=== PATIENT | male | born 1965 | race Caucasian/White ===

== ENCOUNTER 2017-03-24 08:15 | Emergency (ER) | payer SELFPAY ==
[~2017-03-24] VITALS: Ht 182.9 cm; Wt 102.5 kg
[2017-03-24 08:21] VITALS: BP 122/74; PULSE 73; RESP 18; TEMP 97.9; O2SAT 96
[2017-03-24] MEDS ORDERED: CEPH-460 PO ×2 (08:36→08:39)
[2017-03-24] MEDS ORDERED: BACT800T5 PO ×2 (08:36→08:39)
--- NOTE | 2017-03-24 08:37 | PD ---
HPI Chief Complaint: Bite or Sting Time Seen by Provider: 08:25 Travel History International Travel<30 days: No Contact w/Intl Traveler<30days: No Traveled to known affect area: No History of Present Illness HPI 51-year-old male here with complaint of right thigh pain, swelling. Patient woke up approximately 2-3 days ago from sleep. He noted a mild erythematous papule on the right thigh that was itchy. He excoriated and unroofed the scab. Patient states it is becoming progressively more swollen since. Yesterday was draining yellowish pinkish fluid in today now draining somewhat purulent fluid. Patient denies any fevers, chills. No streaking erythema. PFSH Past Medical History Diminished Hearing: No Thyroid Disease: Yes Tetanus Vaccination: Unknown Social History Alcohol Use: Yes Tobacco Use: Yes Allergies-Medications (Allergen,Severity, Reaction): Coded Allergies: No Known Allergies (Unverified , 03/24/17) Reported Meds & Prescriptions Reported Meds & Active Scripts Active Keflex (Cephalexin) 500 Mg Capsule 500 Mg PO TID 7 Days Bactrim DS (Sulfamethoxazole-Trimethoprim) 800-160 Mg Tab 1 Tab PO BID Review of Systems Except as stated in HPI: all other systems reviewed are Neg Physical Exam Narrative GENERAL: Well-appearing male smelling heavily of tobacco no acute distress SKIN: Focused skin assessment warm/dry. HEAD: Normocephalic. EYES: No scleral icterus. No injection or drainage. ENT: Mucous membranes pink and moist. CARDIOVASCULAR: Regular rate and rhythm. RESPIRATORY: No accessory muscle use. GASTROINTESTINAL: Obese MUSCULOSKELETAL: Right thigh with 1.5 x 1.5 cm ulcer draining purulent fluid with surrounding induration and erythema. Margins were demarcated with a marking pen. Strength and gait intact NEUROLOGICAL: Awake and alert. Normal speech. PSYCHIATRIC: Appropriate mood and affect; insight and judgment normal. Data Data Last Documented VS Vital Signs Date Time Temp Pulse Resp B/P Pulse Ox O2 Delivery O2 Flow Rate FiO2 03/24/17 08:21 97.9 73 18 122/74 96 MDM Medical Decision Making Medical Screen Exam Complete: Yes Emergency Medical Condition: Yes Medical Record Reviewed: Yes Differential Diagnosis 51-year-old male here with complaint of possible bug bite to the right leg. Exam is consistent with cellulitis with central ulcer/drain abscess. There is no evidence of persistent fluctuance. Narrative Course Wound culture sent. Patient was started on Bactrim, Keflex for home Diagnosis Primary Impression: Cellulitis and abscess of right leg Referrals: [facility] call for appointment Patient Instructions: General Instructions Departure Forms: Tests/Procedures Additional Instructions: Antibiotics as prescribed. Return to the emergency department for the warning signs discussed. Tylenol, ibuprofen, Aleve as needed for pain. You may also ice the area for pain, swelling. Med/Other Pt SpecificInfo: Prescription(s) given Scripts Cephalexin (Keflex)500 Mg [id number] Mg PO TID 7 Days Ref 0 Prov:Stefania Potts MD 03/24/17 Sulfamethoxazole-Trimethoprim (Bactrim DS)800-160 Mg Tab1 Tab PO BID #14 TAB Ref 0 Prov:Stefania Potts MD 03/24/17 Disposition: 01 DISCHARGE HOME Condition: Stable Stefania Potts MD Mar 24, 2017 08:37
== END 2017-03-24 08:48 | disposition home or self-care (01) ==
LOC: PHED 08:15
DX: L03.115 Cellulitis of right lower limb (principal); L02.415 Cutaneous abscess of right lower limb; B95.0 Streptococcus, group A, as the cause of diseases classified elsewhere; E07.9 Disorder of thyroid, unspecified; Z72.0 Tobacco use
CPT/HCPCS: 87070; 99284